=== PATIENT | male | born 1965 | race Two or more races ===

== ENCOUNTER 2016-08-27 19:22 | Emergency (ER) | payer OTHER ==
[~2016-08-27] VITALS: Ht 193 cm; Wt 104.3 kg
[~2016-08-27 19:22] MED LIST: ANUSOL-HC CREAM30 GM RECTAL; BACITRACIN15 GM TOPIC; CHERATUSSIN AC118 ML PO; CIPROFLOXACIN500 M2 ORAL; CLINDAMYCIN HC150 MG ORAL; DICYCLOMINE HCL20 M1 PO; FAMOTIDINE20 MG ORAL; HYDROCODON-ACE1 EAC1 PO; KEFLEX250 MG ORAL; KEFLEX500 MG ORAL; NKM; PREDNISONE20 MG ORAL
[2016-08-27] MEDS ORDERED: Mylanta II UD 30ml ORAL ONE (20:00)
[2016-08-27] MEDS ORDERED: Lidocaine 2% Visc 15ml soln ORAL ONE (20:00)
[2016-08-27] MEDS ORDERED: Dicyclomine HCl 10mg/5ml oral soln ORAL ONE (20:00)
[2016-08-27] MEDS ORDERED: PEPCID40 MG PO (20:46)
[2016-08-27 21:16] LABS: APPEARANCE,URINE CLEAR; KETONES,URINE NEGATIVE (NEGATIVE); LEUKOCYTE ESTERASE ,URINE NEGATIVE (NEGATIVE); NITRITE,URINE NEGATIVE (NEGATIVE); PH,URINE 6 (4.5-8.0); PROTEIN,URINE NEGATIVE (NEGATIVE); UROBILINOGEN,URINE NORMAL MG/DL (0.0-1.0)
[2016-08-27 21:30] VITALS: BP 120/81
[2016-08-27 21:31] LABS: BACTERIA,URINE FEW /HPF; RBC,URINE 0-2 /HPF (0 - 0); WBC,URINE 0-2 /HPF (0 - 0)
[2016-08-27 21:33] VITALS: BP 120/81
--- NOTE | 2016-08-28 13:00 | Emergency Room Report ---
History of Present Illness General Chief Complaint: Abdominal Pain Present Illness HPI The patient is a 51-year-old male presenting for one day of abdominal pain after eating spicy tajik food. The patient describes the pain as a 3/10 dull ache in the right lower quadrant and also upper midabdomen. The patient does admit to burning sensation of the mid chest after eating. The patient denies history of GERD and has not taken any medications for this. The patient states that the pain has decreased since this morning. The patient denies any other symptoms including nausea, vomiting, fever, chills, diarrhea, constipation Allergies: Coded Allergies: FISH CONTAINING PRODUCTS (Unverified Allergy, Severe, Anaphylaxis, 11/01/14 ) Patient History Past Medical History: see triage record Pertinent Family History: none Reviewed Nursing Documentation: PMH: Agreed, PSxH: Agreed Nursing Documentation-PMH Hx Cardiac Problems: No Hx Hypertension: Yes Hx Pacemaker: No Hx Asthma: No Hx COPD: No Hx Diabetes: No Hx Cancer: Yes - Brain Hx Gastrointestinal Problems: Yes - Hemorrhoid Hx Dialysis: No Hx Neurological Problems: No Hx Cerebrovascular Accident: No Hx Seizures: No Review of Systems All Other Systems: negative except mentioned in HPI Physical Exam Vital Signs Date Time Temp Pulse Resp B/P Pulse Ox O2 Delivery O2 Flow Rate FiO2 08/27/16 19:43 98.4 69 20 120/81 99 Room Air Sp02 EP Interpretation: reviewed, normal General Appearance: no apparent distress, alert, GCS 15, non-toxic Head: normocephalic, atraumatic Eyes: bilateral eye PERRL, bilateral eye normal inspection ENT: hearing grossly normal, normal pharynx, no angioedema, normal voice Neck: full range of motion, supple/symm/no masses Respiratory: chest non-tender, lungs clear, normal breath sounds, no wheezing, speaking full sentences Cardiovascular #1: regular rate, rhythm, no edema Gastrointestinal: normal bowel sounds, soft, no mass, tenderness - epigastric Musculoskeletal: back normal, gait/station normal, normal range of motion, non- tender Neurologic: alert, oriented x3, responsive, motor strength/tone normal, sensory intact, speech normal Psychiatric: judgement/insight normal, memory normal, mood/affect normal, no suicidal/homicidal ideation Skin: normal color, no rash, warm/dry, well hydrated Lymphatic: no adenopathy Medical Decision Making PA Attestation Dr. Osborne is my supervising physician. Patient management was discussed with my supervising physician Diagnostic Impression: Primary Impression: GERD (gastroesophageal reflux disease) ER Course The patient is a 51-year-old male presenting for one day of abdominal pain after eating spicy tajik food Differential diagnoses considered include but not limited to gastroenteritis, GERD, pancreatitis, appendicitis, UTI PE: Vitals WNL. NAD. Abdomen: Normal appearance. Non distended. No ecchymosis. Normal BS. No guarding. There is tenderness to palpation over epigastric region. No McBurney point tenderness No CVA tenderness The patient is given a GI cocktail and is feeling better. The patient will be discharged home with a prescription for Pepcid. ER precautions are given and patient will follow up with PMD Laboratory Tests Test 08/27/16 21:00 Urine Color Pale yellow Urine Appearance Clear Urine pH 6 (4.5-8.0) Urine Specific [place] 1.020 (1.005-1.035) Urine Protein Negative (NEGATIVE) Urine Glucose (UA) Negative (NEGATIVE) Urine Ketones Negative (NEGATIVE) Urine Occult Blood 1+ (NEGATIVE) H Urine Nitrite Negative (NEGATIVE) Urine Bilirubin Negative (NEGATIVE) Urine Urobilinogen Normal MG/DL (0.0-1.0) Urine Leukocyte Esterase Negative (NEGATIVE) Urine RBC 0-2 /HPF (0 - 0) H Urine WBC 0-2 /HPF (0 - 0) Urine Squamous Epithelial Cells None /LPF (NONE/OCC) Urine Bacteria Few /HPF (NONE) Lab Results Impression UA: no signs of infection Last Vital Signs Date Time Temp Pulse Resp B/P Pulse Ox O2 Delivery O2 Flow Rate FiO2 08/27/16 21:33 78 16 120/81 99 Room Air 08/27/16 21:30 98.0 Status: improved Disposition: HOME, SELF-CARE Condition: Improved Scripts Famotidine (PEPCID) 40 Mg Tablet 40 MG PO DAILY, #7 TAB 0 Refills Prov: RL QUINONES 08/27/16 Referrals: [facility],REFERRING (PCP) Patient Instructions: Gastroesophageal Reflux Disease, Adult Additional Instructions: I discussed my findings with the patient. All questions and concerns have been answered. Treatment and medication compliance have been addressed. I advised the patient that they need to follow up with PMD in 3-5 days. Return to ED if symptoms worsen, new symptoms arise, or if needed for any reason. Patient verbalized understanding of discharge instructions. RL QUINONES Aug 28, 2016 13:00
== END 2016-08-27 21:35 | disposition home or self-care (01) ==
LOC: EMR 20:15
DX: K21.9 Gastro-esophageal reflux disease without esophagitis (principal); Z91.013 Allergy to seafood; I10 Essential (primary) hypertension; Z85.841 Personal history of malignant neoplasm of brain
CPT/HCPCS: 81003; 99283

== ENCOUNTER 2016-09-06 14:13 | Emergency (ER) | payer OTHER ==
[~2016-09-06] VITALS: Ht 193 cm; Wt 103.4 kg
[~2016-09-06 14:13] MED LIST changes: +PEPCID40 MG PO
[2016-09-06 14:26] VITALS: BP 143/92
[2016-09-06 16:10] LABS: APPEARANCE,URINE CLEAR; KETONES,URINE NEGATIVE (NEGATIVE); LEUKOCYTE ESTERASE ,URINE NEGATIVE (NEGATIVE); NITRITE,URINE NEGATIVE (NEGATIVE); PH,URINE 7 (4.5-8.0); PROTEIN,URINE NEGATIVE (NEGATIVE); UROBILINOGEN,URINE NORMAL MG/DL (0.0-1.0)
[2016-09-06] MEDS ORDERED: ZYPREXA2.5 MG ORAL (16:16)
[2016-09-06 16:20] VITALS: BP 143/92
--- NOTE | 2016-09-08 09:11 | Emergency Room Report ---
History of Present Illness General Chief Complaint: Male Urogenital Problems Source: Patient Present Illness HPI Patient present with complaints of burning sensation with urination He states that he has had this before in the past and had not been able to figure out what is going on Denies any vomiting or diarrhea denies any fevers or chills patient reports that he has not had any sexual relations over the past one year Denies any testicular pain Her that he has some mild suprapubic discomfort before this Patient also reports that he is out of his Zyprexa which was given previously Which she felt was helping him Allergies: Coded Allergies: FISH CONTAINING PRODUCTS (Unverified Allergy, Severe, Anaphylaxis, 11/01/14 ) Patient History Past Medical History: see triage record Pertinent Family History: none Reviewed Nursing Documentation: PMH: Agreed, PSxH: Agreed Nursing Documentation-PMH Past Medical History: No History, Except For Hx Cardiac Problems: No Hx Hypertension: Yes Hx Pacemaker: No Hx Asthma: No Hx COPD: No Hx Diabetes: No Hx Cancer: Yes - Brain Hx Gastrointestinal Problems: Yes - GERD, Hemorrhoid Hx Dialysis: No Hx Neurological Problems: No Hx Cerebrovascular Accident: No Hx Seizures: No Review of Systems All Other Systems: negative except mentioned in HPI Physical Exam Vital Signs Date Time Temp Pulse Resp B/P Pulse Ox O2 Delivery O2 Flow Rate FiO2 09/06/16 14:26 98.2 75 16 143/92 99 Room Air Sp02 EP Interpretation: reviewed, normal General Appearance: well appearing, no apparent distress Head: normocephalic, atraumatic Eyes: bilateral eye EOMI, bilateral eye PERRL ENT: hearing grossly normal, normal pharynx, TMs + canals normal, uvula midline Neck: full range of motion, supple, no meningismus, no bony tend Respiratory: lungs clear, normal breath sounds, no rhonchi, no respiratory distress, no retraction, no accessory muscle use Cardiovascular #1: normal peripheral pulses, regular rate, rhythm, no edema, no gallop, no JVD, no murmur Gastrointestinal: normal bowel sounds, non tender, soft, no mass, no organomegaly, non-distended, no guarding, no hernia, no pulsatile mass, no rebound Genitourinary: no CVA tenderness Musculoskeletal: normal inspection Neurologic: oriented x3, responsive, monitor technician III-XII nml as tested, motor strength/ tone normal, sensory intact Psychiatric: mood/affect normal Skin: normal color, no rash, warm/dry, palpation normal Lymphatic: normal inspection, no adenopathy Medical Decision Making Diagnostic Impression: Primary Impression: dysuria ER Course Patient's urine sample was clear no signs of any obvious infectious pathology Patient was discussed regarding close outpatient followup at this time the patient's abdomen is soft and there is no requirement for further imaging study UA; negative Last Vital Signs Date Time Temp Pulse Resp B/P Pulse Ox O2 Delivery O2 Flow Rate FiO2 09/06/16 16:20 98.2 75 16 143/92 99 Room Air Status: unchanged Disposition: HOME, SELF-CARE Condition: Stable Scripts Olanzapine* (ZYPREXA*) 2.5 Mg Tablet 2.5 MG ORAL DAILY, #15 TAB 0 Refills Prov: FABRICIO BACH D.O. 09/06/16 Referrals: [facility],REFERRING (PCP) Patient Instructions: Dysuria Additional Instructions: Patient is provided with the discharge instructions notified to follow up with primary doctor in the next 2-3 days otherwise return to the er with any worsening symptoms. Please note that this report is being documented using [employer] technology. This can lead to erroneous entry secondary to incorrect interpretation by the dictating instrument. FABRICIO BACH D.O. Sep 08, 2016 09:11
== END 2016-09-06 16:20 | disposition home or self-care (01) ==
LOC: EMR 15:13
DX: R30.0 Dysuria (principal); Z91.013 Allergy to seafood; I10 Essential (primary) hypertension; Z85.841 Personal history of malignant neoplasm of brain; K21.9 Gastro-esophageal reflux disease without esophagitis
CPT/HCPCS: 81003; 99283

== ENCOUNTER 2016-09-22 13:01 | Emergency (ER) | payer OTHER ==
[~2016-09-22] VITALS: Ht 193 cm; Wt 98.0 kg
[~2016-09-22 13:01] MED LIST changes: +ZYPREXA2.5 MG ORAL
[2016-09-22 13:14] VITALS: BP 132/84
--- NOTE | 2016-09-22 13:23 | Emergency Room Report ---
History of Present Illness General Chief Complaint: Medication Refill Present Illness HPI 51-year-old male presents the emergency department requesting medication refill for his Zyprexa patient states he has a history of anxiety. Patient also states that he is a surviving brain cancer survivor, and he needs to have an MRI performed soon however due to his anxiety he is unable to have this done. Patient states he has been out of his medication and he is unable to follow up with his PCP for medication refill. Patient denies difficulty breathing, shortness of breath, fevers or chills. Patient denies depression, SI or HI. Denies CP, Palpitations, LOC, AMS, dizziness, Changes in Vision, Sensation, paresthesias, or a sudden severe headache. Allergies: Coded Allergies: FISH CONTAINING PRODUCTS (Unverified Allergy, Severe, Anaphylaxis, 11/01/14 ) Patient History Past Medical History: see triage record Past Surgical History: none Pertinent Family History: none Immunizations: UTD Reviewed Nursing Documentation: PMH: Agreed, PSxH: Agreed Nursing Documentation-PMH Hx Cardiac Problems: No Hx Hypertension: Yes Hx Pacemaker: No Hx Asthma: No Hx COPD: No Hx Diabetes: No Hx Cancer: Yes - Brain Hx Gastrointestinal Problems: Yes - GERD, Hemorrhoid Hx Dialysis: No Hx Neurological Problems: No Hx Cerebrovascular Accident: No Hx Seizures: No Review of Systems All Other Systems: negative except mentioned in HPI Physical Exam Vital Signs Date Time Temp Pulse Resp B/P Pulse Ox O2 Delivery O2 Flow Rate FiO2 09/22/16 13:08 98.1 70 16 132/84 99 Room Air Sp02 EP Interpretation: reviewed, normal General Appearance: no apparent distress, alert, GCS 15, non-toxic Head: normocephalic, atraumatic Eyes: bilateral eye PERRL, bilateral eye normal inspection ENT: hearing grossly normal, normal pharynx, no angioedema, normal voice Neck: full range of motion, supple/symm/no masses Respiratory: lungs clear, normal breath sounds, speaking full sentences Cardiovascular #1: regular rate, rhythm Musculoskeletal: back normal, gait/station normal, normal range of motion, non- tender Neurologic: alert, oriented x3, responsive, motor strength/tone normal, sensory intact, speech normal Psychiatric: judgement/insight normal, memory normal, mood/affect normal, no suicidal/homicidal ideation Skin: normal color, no rash, warm/dry, well hydrated Lymphatic: no adenopathy Medical Decision Making PA Attestation Dr. Levine is my supervising Physician whom patient management has been discussed with. Diagnostic Impression: Primary Impression: Encounter for medication refill ER Course 51-year-old male presents the emergency department requesting medication refill for his Zyprexa patient states he has a history of anxiety. Patient also states that he is a surviving brain cancer survivor, and he needs to have an MRI performed soon however due to his anxiety he is unable to have this done. Patient states he has been out of his medication and he is unable to follow up with his PCP for medication refill. Patient denies difficulty breathing, shortness of breath, fevers or chills. Patient denies depression, SI or HI. Ddx considered but are not limited to: drug seeking, OD, SI/HI, anxiety Vital signs: are WNL, pt. is afebrile H&PE are most consistent with need for medication refill. ORDERS: none required at this time, the diagnosis is clinical ED INTERVENTIONS: None required at this time. DISCHARGE: At this time pt. is stable for d/c to home. Will provide printed patient care instructions, and any necessary prescriptions. Care plan and follow up instructions have been discussed with the patient prior to discharge. Last Vital Signs Date Time Temp Pulse Resp B/P Pulse Ox O2 Delivery O2 Flow Rate FiO2 09/22/16 13:14 16 132/84 99 Room Air 09/22/16 13:08 98.1 70 Disposition: HOME, SELF-CARE Condition: Stable Scripts Olanzapine* (ZYPREXA*) 2.5 Mg Tablet 2.5 MG ORAL DAILY, #30 TAB 0 Refills Prov: Leonie Robles 09/22/16 Patient Instructions: Medicine Refill at the Emergency Department Additional Instructions: Take medications as directed. Follow up with PCP in 3-5 days Return sooner to ED if new symptoms occur, or current symptoms become worse. Review provided information for [facility] for follow up and medication refill management * - Please note that this Emergency Department Report was dictated using [employer] top publisher technology software, occasionally this can lead to erroneous entry secondary to interpretation by the dictation equipment. Leonie Robles Sep 22, 2016 13:23
[2016-09-22 13:24] VITALS: BP 132/84
[2016-09-22] MEDS ORDERED: ZYPREXA2.5 MG ORAL (13:24)
== END 2016-09-22 13:25 | disposition home or self-care (01) ==
LOC: EMR 13:22
DX: Z76.0 Encounter for issue of repeat prescription (principal); F41.9 Anxiety disorder, unspecified; I10 Essential (primary) hypertension; K21.9 Gastro-esophageal reflux disease without esophagitis; Z85.841 Personal history of malignant neoplasm of brain
CPT/HCPCS: 99283

== ENCOUNTER 2017-03-31 12:30 | Emergency (ER) | payer OTHER ==
[~2017-03-31] VITALS: Ht 193 cm; Wt 99.8 kg
[2017-03-31 12:35] VITALS: BP 121/78
[2017-03-31] MEDS ORDERED: KENALOG 0.025%15 GM APPLIC (13:10)
[2017-03-31] MEDS ORDERED: CORTISPORIN EAR10 ML LEFT EAR (13:10)
[2017-03-31 13:27] VITALS: BP 121/78
--- NOTE | 2017-03-31 14:17 | Emergency Room Report ---
History of Present Illness General Chief Complaint: Earache Source: Patient Present Illness HPI The patient is a 51-year-old male presenting for left ear pain for the past 2 days. Pain is a 6/10 dull ache and does not radiate. Worse with touch. He denies any changes in hearing. He denies any fever or chills. He does admit to frequently cleaning the ears out with Q-tips. Is also complaining of rash to both hands described as very itchy. He states he has a history of eczema. He denies any pain. He has not tried any medications yet for this. He denies any other symptoms Allergies: Coded Allergies: FISH CONTAINING PRODUCTS (Unverified Allergy, Severe, Anaphylaxis, 11/01/14 ) Patient History Past Medical History: see triage record Pertinent Family History: none Reviewed Nursing Documentation: PMH: Agreed, PSxH: Agreed Nursing Documentation-PMH Hx Cardiac Problems: No Hx Hypertension: Yes Hx Pacemaker: No Hx Asthma: No Hx COPD: No Hx Diabetes: No Hx Cancer: Yes - Brain Hx Gastrointestinal Problems: Yes - GERD, Hemorrhoid Hx Dialysis: No Hx Neurological Problems: No Hx Cerebrovascular Accident: No Hx Seizures: No Review of Systems All Other Systems: negative except mentioned in HPI Physical Exam Vital Signs Date Time Temp Pulse Resp B/P (MAP) Pulse Ox O2 Delivery O2 Flow Rate FiO2 03/31/17 12:33 97.9 75 20 121/78 99 Room Air Sp02 EP Interpretation: reviewed, normal General Appearance: no apparent distress, alert, GCS 15, non-toxic Head: normocephalic, atraumatic Eyes: bilateral eye normal inspection, bilateral eye PERRL ENT: hearing grossly normal, normal voice, uvula midline, other - L EAC erythema and TTP to tragus Neck: full range of motion, supple/symm/no masses Respiratory: chest non-tender, lungs clear, normal breath sounds, speaking full sentences Cardiovascular #1: regular rate, rhythm, no edema Musculoskeletal: back normal, gait/station normal, normal range of motion, non- tender Neurologic: alert, oriented x3, responsive, motor strength/tone normal, sensory intact, speech normal Psychiatric: judgement/insight normal, memory normal, mood/affect normal, no suicidal/homicidal ideation Skin: rash - Bilat hands erythema with papules on palmar surfaces and between fingers Lymphatic: no adenopathy Medical Decision Making PA Attestation Dr. Fuentes is my supervising physician. Patient management was discussed with my supervising physician Diagnostic Impression: Primary Impression: Eczema, dyshidrotic Additional Impression: Otitis externa, acute Qualified Codes: H60.502 - Unspecified acute noninfective otitis externa, left ear ER Course The patient is a 50-year-old male presenting for left ear pain and had rash Differential diagnosis include but not limited to otitis externa, otitis media, mastoiditis, sinusitis, pharyngitis Ddx considered include but not limited to insect bite, contact dermatitis, eczema, cellulitis, herpes Physical exam: Vitals within normal limits. No apparent distress. HEENT: Left ear external auditory canal is erythematous and edematous. TTP over tragus. Tympanic membrane is intact. No bulging. There is no cervical lymphadenopathy. There is erythema with papules of bilateral hand palmar surfaces in between fingers Otherwise exam is unremarkable The patient will be discharged home with a prescription for Cortisporin and triamcinolone. ER precautions given Last Vital Signs Date Time Temp Pulse Resp B/P (MAP) Pulse Ox O2 Delivery O2 Flow Rate FiO2 03/31/17 13:27 97.9 75 20 121/78 99 Room Air Status: improved Disposition: HOME, SELF-CARE Condition: Improved Scripts Neomycin/Polymyxin B Sulf/Hc* (CORTISPORIN EAR SOLUTION*) 10 Ml Solution 4 DROP LEFT EAR QID, #10 ML 0 Refills Prov: RL QUINONES 03/31/17 Triamcinolone Acet (Triamcinolone Acetonide) 15 Gm Cream..g. 15 GM APPLIC TID, #15 GM Prov: RL QUINONES 03/31/17 Referrals: [facility],REFERRING (PCP) Patient Instructions: Hand Dermatitis, Otitis Externa Additional Instructions: I discussed my findings with the patient. All questions and concerns have been answered. Treatment and medication compliance have been addressed. I advised the patient that they need to follow up with PMD in 3-5 days. Return to ED if symptoms worsen, new symptoms arise, or if needed for any reason. Patient verbalized understanding of discharge instructions. RL QUINONES Mar 31, 2017 14:17
== END 2017-03-31 13:28 | disposition home or self-care (01) ==
LOC: EMR 13:00
DX: H60.502 Unspecified acute noninfective otitis externa, left ear (principal); L30.1 Dyshidrosis [pompholyx]; I10 Essential (primary) hypertension; Z85.841 Personal history of malignant neoplasm of brain; K21.9 Gastro-esophageal reflux disease without esophagitis
CPT/HCPCS: 99283

== ENCOUNTER 2017-07-16 18:14 | Emergency (ER) | payer OTHER ==
[~2017-07-16] VITALS: Ht 193 cm; Wt 104.3 kg
[~2017-07-16 18:14] MED LIST changes: +CORTISPORIN EAR10 ML LEFT EAR; +KENALOG 0.025%15 GM APPLIC
[2017-07-16 18:30] VITALS: BP 157/90
--- NOTE | 2017-07-16 18:56 | Emergency Room Report ---
History of Present Illness General Chief Complaint: Pain Source: Patient Present Illness HPI 51 YO male presents to the ED c/o 10/01 in severity rectal pain and itching episodic x several months. He reports scant BRBPR after defecation. Patient states that at age 48 he had a normal colonoscopy performed he denies night sweats or significant changes in weight he denies familial history of colon cancer. He denies constipation he does report that on occasion he will do some strenuous lifting. He states that he has struggled with hemorrhoids off and on for many years. He denies abdominal pain or tenderness. he denies history of enlarged prostate, penile discharge, dysuria, testicular pain or swelling. Denies nausea or vomiting. Patient also has a history of eczema to the bilateral hands and is requesting medication refill of triamcinolone cream. Allergies: Coded Allergies: FISH CONTAINING PRODUCTS (Unverified Allergy, Severe, Anaphylaxis, 11/01/14 ) Patient History Past Medical History: see triage record Past Surgical History: none Pertinent Family History: none Immunizations: UTD Reviewed Nursing Documentation: PMH: Agreed, PSxH: Agreed Nursing Documentation-PMH Hx Cardiac Problems: No Hx Hypertension: Yes Hx Pacemaker: No Hx Asthma: No Hx COPD: No Hx Diabetes: No Hx Cancer: Yes - Brain Hx Gastrointestinal Problems: Yes - GERD, Hemorrhoid Hx Dialysis: No Hx Neurological Problems: No Hx Cerebrovascular Accident: No Hx Seizures: No Review of Systems All Other Systems: negative except mentioned in HPI Physical Exam Vital Signs Date Time Temp Pulse Resp B/P (MAP) Pulse Ox O2 Delivery O2 Flow Rate FiO2 07/16/17 18:19 97.9 90 17 157/90 96 Room Air Sp02 EP Interpretation: reviewed, normal General Appearance: well appearing, no apparent distress, alert, GCS 15, non- toxic Head: normocephalic, atraumatic ENT: hearing grossly normal, normal voice Neck: full range of motion Respiratory: lungs clear, normal breath sounds, speaking full sentences Cardiovascular #1: regular rate, rhythm Gastrointestinal: non tender, soft Rectal: heme negative stool, hemorrhoids - hemorrhoid 6 o'clock Position non thrombosed. , secondary to straining/ constipation. bowl sounds are normo active, prostate non-tender Genitourinary: deferred Musculoskeletal: back normal, gait/station normal, normal range of motion, non- tender Neurologic: alert, oriented x3, responsive, motor strength/tone normal, sensory intact, speech normal, grossly normal Psychiatric: judgement/insight normal Skin: normal color, warm/dry, well hydrated, rash - small dry hyperpigmented plaques interdigitally bilaterally. Medical Decision Making PA Attestation Dr. avila is my supervising Physician whom patient management has been discussed with. Diagnostic Impression: Primary Impression: External hemorrhoid Additional Impression: Eczema, dyshidrotic ER Course 51 YO male presents to the ED c/o 10/01 in severity rectal pain and itching episodic x several months. He reports scant BRBPR after defecation. Patient states that at age 48 he had a normal colonoscopy performed he denies night sweats or significant changes in weight he denies familial history of colon cancer. He denies constipation he does report that on occasion he will do some strenuous lifting. He states that he has struggled with hemorrhoids off and on for many years. He denies abdominal pain or tenderness. he denies history of enlarged prostate, penile discharge, dysuria, testicular pain or swelling. Denies nausea or vomiting. Patient also has a history of eczema to the bilateral hands and is requesting medication refill of triamcinolone cream. Ddx considered but are not limited to constipation , anal fissure, perianal abscess, rectal wall tear, thrombosed hemorrhoid, hemorrhoid. Vital signs: are WNL, pt. is afebrile H&PE are most consistent with hemorrhoid 6 o'clock Position non thrombosed. , secondary to straining/ constipation. bowl sounds are normo active. ORDERS: - FOB Guiac Test: negative ED INTERVENTIONS: - Discussed the patient's self care interventions for hemorrhoids DISCHARGE: At this time pt. is stable for d/c to home. Will provide printed patient care instructions, and any necessary prescriptions. Care plan and follow up instructions have been discussed with the patient prior to discharge. Last Vital Signs Date Time Temp Pulse Resp B/P (MAP) Pulse Ox O2 Delivery O2 Flow Rate FiO2 07/16/17 18:30 97.9 79 17 157/90 96 Room Air Disposition: HOME, SELF-CARE Condition: Stable Scripts Triamcinolone Acet (Triamcinolone Acetonide) 15 Gm Cream..g. 1 APPLIC TP BID, #15 GM 3 Refills Prov: Leonie Robles 07/16/17 Hydrocortisone Acetate* (ANUSOL-HC*) 25 Mg Supp.rect 1 SUPP RECTAL TWICE A DAY, #20 SUPP Prov: Leonie Robles 07/16/17 Referrals: [facility],REFERRING (PCP) Patient Instructions: Eczema, Hemorrhoids Additional Instructions: Take medications as directed. Follow up with a Primary Care Provider in 3-5 days for GI Referral as needed , even if your symptoms have resolved. --Please review list of primary care clinics, if you do not already have a primary care provider Return sooner to ED if new symptoms occur, or current symptoms become worse. - Please note that this Emergency Department Report was dictated using [employer] technology software, occasionally this can lead to erroneous entry secondary to interpretation by the dictation equipment. Leonie Robles Jul 16, 2017 18:55
[2017-07-16] MEDS ORDERED: ANUSOL-HC25 MG RECTAL (19:00)
[2017-07-16] MEDS ORDERED: KENALOG 0.025%15 GM TP (19:00)
[2017-07-16 19:08] VITALS: BP 152/88
== END 2017-07-16 19:12 | disposition home or self-care (01) ==
LOC: EMR 18:38
DX: K64.4 Residual hemorrhoidal skin tags (principal); L30.1 Dyshidrosis [pompholyx]; K21.9 Gastro-esophageal reflux disease without esophagitis; I10 Essential (primary) hypertension; Z85.841 Personal history of malignant neoplasm of brain; Z91.013 Allergy to seafood
CPT/HCPCS: 99283

== ENCOUNTER 2017-11-08 10:09 | Emergency (ER) | payer OTHER ==
[~2017-11-08] VITALS: Ht 193 cm; Wt 104.3 kg
[~2017-11-08 10:09] MED LIST changes: +ANUSOL-HC25 MG RECTAL; +KENALOG 0.025%15 GM TP
[2017-11-08 10:57] VITALS: BP 138/79
[2017-11-08 11:13] LABS: BILIRUBIN, URINE NEGATIVE (NEGATIVE); COLOR,URINE PALE YELLOW; GLUCOSE, URINE (UA) NEGATIVE (NEGATIVE); KETONES,URINE NEGATIVE (NEGATIVE); LEUKOCYTE ESTERASE ,URINE NEGATIVE (NEGATIVE); NITRITE,URINE NEGATIVE (NEGATIVE); PH,URINE 6 (4.5-8.0); PROTEIN,URINE NEGATIVE (NEGATIVE); UROBILINOGEN,URINE NORMAL MG/DL (0.0-1.0)
[2017-11-08 11:20] LABS: APPEARANCE,URINE SLIGHTLY CLOUDY
--- NOTE | 2017-11-08 12:14 | Emergency Room Report ---
History of Present Illness General Chief Complaint: Abdominal Pain Source: Patient Present Illness HPI The patient states that he has lower abdominal pain. He states the pain is worse with movement. He admits that he has been moving and carrying heavy boxes. He has not been able to rest. He also is concerned because he has had a little bit of dysuria over the past day. He has in the past had a urinary tract infection. He denies sexual activity and the possibility that he could have a sexually transmitted disease. He denies testicular pain. He denies nausea or vomiting. He denies fever or chills. He denies back pain. He has no other complaints. Allergies: Coded Allergies: FISH CONTAINING PRODUCTS (Unverified Allergy, Severe, Anaphylaxis, 11/01/14 ) Patient History Past Medical History: see triage record, GERD, other - Hemorrhoids, brain cancer Social History: Denies: smoking, alcohol use, drug use Reviewed Nursing Documentation: PMH: Agreed; PSxH: Agreed Nursing Documentation-PMH Hx Cardiac Problems: No Hx Pacemaker: No Hx Asthma: No Hx COPD: No Hx Diabetes: No Hx Cancer: Yes - Brain Hx Gastrointestinal Problems: Yes - GERD, Hemorrhoid Hx Dialysis: No Hx Neurological Problems: No Hx Cerebrovascular Accident: No Hx Seizures: No Review of Systems All Other Systems: negative except mentioned in HPI Physical Exam Vital Signs Date Time Temp Pulse Resp B/P (MAP) Pulse Ox O2 Delivery O2 Flow Rate FiO2 11/08/17 10:17 98.0 86 20 138/79 97 Room Air 98.1 Sp02 EP Interpretation: reviewed, normal General Appearance: no apparent distress, alert, GCS 15, non-toxic Head: normocephalic, atraumatic Eyes: bilateral eye normal inspection, bilateral eye PERRL ENT: hearing grossly normal, normal pharynx, no angioedema, normal voice Neck: full range of motion, supple/symm/no masses Respiratory: chest non-tender, lungs clear, normal breath sounds, no respiratory distress, no retraction, no accessory muscle use, speaking full sentences Cardiovascular #1: regular rate, rhythm, no edema Gastrointestinal: normal bowel sounds, soft, non-distended, no guarding, no rebound, tenderness - mild ttp over the lower abdominal muscles. Rectal: deferred Musculoskeletal: back normal, gait/station normal, normal range of motion, non- tender Neurologic: alert, oriented x3, responsive, motor strength/tone normal, sensory intact, speech normal Psychiatric: judgement/insight normal, memory normal, mood/affect normal, no suicidal/homicidal ideation Skin: normal color, no rash, warm/dry, well hydrated Medical Decision Making Diagnostic Impression: Primary Impression: Abdominal muscle strain Additional Impressions: Dysuria Hemorrhoids ER Course This patient has a clinical presentation consistent with abdominal muscle strain. There are no red flags on physical exam or history that would make me concerned for serious intra-abdominal process. Therefore, I do not feel that I need to obtain imaging studies. The patient has pain with range of motion and has tenderness to palpation along the muscle. There is no evidence of compartment syndrome. The patient had some dysuria, however, urinalysis is unremarkable. The patient requested a refill on his triamcinolone for his eczema. He also requested a refill on the larger cortisone for his hemorrhoids. The patient was instructed on supportive home measures. Patient was also instructed on the importance of follow-up with her primary care physician. No emergency medical condition was identified. The patient was given return precautions and followup instructions. Laboratory Tests Test 11/08/17 10:20 Urine Color Pale yellow Urine Appearance Slightly cloudy Urine pH 6 (4.5-8.0) Urine Specific [place] 1.010 (1.005-1.035) Urine Protein Negative (NEGATIVE) Urine Glucose (UA) Negative (NEGATIVE) Urine Ketones Negative (NEGATIVE) Urine Occult Blood 1+ (NEGATIVE) H Urine Nitrite Negative (NEGATIVE) Urine Bilirubin Negative (NEGATIVE) Urine Urobilinogen Normal MG/DL (0.0-1.0) Urine Leukocyte Esterase Negative (NEGATIVE) Urine RBC 0-2 /HPF (0 - 0) H Urine WBC 0-2 /HPF (0 - 0) Urine Squamous Epithelial Cells Occasional /LPF Urine Bacteria Few /HPF (NONE) Last Vital Signs Date Time Temp Pulse Resp B/P (MAP) Pulse Ox O2 Delivery O2 Flow Rate FiO2 11/08/17 10:57 98.1 79 18 138/79 99 Room Air 98.1 Status: improved Disposition: HOME, SELF-CARE Condition: Improved Referrals: NON PHYSICIAN (PCP) NARESH LAYNE D.O. November 08, 2017 12:14
[2017-11-08] MEDS ORDERED: ANUSOL-HC30 GM RC (12:19)
[2017-11-08] MEDS ORDERED: KENALOG 0.025%15 GM APPLIC (12:19)
[2017-11-08] MEDS ORDERED: LIDODERM700 M1 TOPIC (12:19)
[2017-11-08 12:28] VITALS: BP 133/78
== END 2017-11-08 12:34 | disposition home or self-care (01) ==
LOC: EMR 10:34
DX: S39.011A Strain of muscle, fascia and tendon of abdomen, initial encounter (principal); X50.0XXA Overexertion from strenuous movement or load, initial encounter; Y92.89 Other specified places as the place of occurrence of the external cause; R30.0 Dysuria; K64.9 Unspecified hemorrhoids; K21.9 Gastro-esophageal reflux disease without esophagitis; Z85.841 Personal history of malignant neoplasm of brain
CPT/HCPCS: 81003; 99282

== ENCOUNTER 2019-01-17 18:44 | Emergency (ER) | payer OTHER ==
[~2019-01-17] VITALS: Ht 193 cm; Wt 102.1 kg
[~2019-01-17 18:44] MED LIST changes: +ANUSOL-HC30 GM RC; +LIDODERM700 M1 TOPIC
--- NOTE | 2019-01-17 18:53 | NUR ---
ED Nurse Note: PT walked in c/o abdominal pain and discomfort. VSS. alert x4, ambulatory
[2019-01-17 18:55] VITALS: BP 144/80
[2019-01-17 19:39] LABS: BASOPHILS % (AUTO) 1.2 % (0.0-2.0); EOSINOPHILS % (AUTO) 1.5 % (0.0-3.0); HEMATOCRIT 43.8 % (42.0-52.0); HEMOGLOBIN 14.8 G/DL (14.2-18.0); LYMPHOCYTES % (AUTO) 29.8 % (20.0-45.0); MEAN CORPUSCULAR VOLUME 94 FL (80-99); MONOCYTES % (AUTO) 9.5 % (1.0-10.0); NEUTROPHILS % (AUTO) 57.9 % (45.0-75.0); PLATELET COUNT 192 K/UL (150-450); RED BLOOD COUNT 4.64 M/UL (4.70-6.10); RED CELL DISTRIBUTION WIDTH 11.3 % (11.6-14.8)
[2019-01-17 19:51] LABS: ANION GAP 9 mmol/L (5-15); BLOOD UREA NITROGEN 17 mg/dL (7-18); CALCIUM 9.5 MG/DL (8.5-10.1); CARBON DIOXIDE 27 MMOL/L (21-32); CHLORIDE 103 MMOL/L (98-107); CREATININE 1.2 MG/DL (0.55-1.30); POTASSIUM 3.9 MMOL/L (3.5-5.1); SODIUM 139 MMOL/L (136-145)
[2019-01-17 19:56] LABS: ALANINE AMINOTRANSFERASE 36 U/L (12-78); ALBUMIN 4.5 G/DL (3.4-5.0); ALBUMIN/GLOBULIN RATIO 1.5 (1.0-2.7); ALKALINE PHOSPHATASE 83 U/L (46-116); ASPARTATE AMINO TRANSFERASE 38 U/L (15-37); BILIRUBIN,TOTAL 0.4 MG/DL (0.2-1.0)
--- NOTE | 2019-01-17 20:03 | Diagnostic Imaging Report ---
EXAM: XR Chest, 1 View CLINICAL HISTORY: PAIN TECHNIQUE: Frontal view of the chest. COMPARISON: No relevant prior studies available. FINDINGS: Lungs: Unremarkable. No consolidation. Pleural space: Unremarkable. No pneumothorax. Heart: Unremarkable. No cardiomegaly. Mediastinum: Unremarkable. Bones/joints: Unremarkable. IMPRESSION: Normal chest x-ray.
[2019-01-17 20:33] LABS: APPEARANCE,URINE CLEAR; BILIRUBIN, URINE NEGATIVE (NEGATIVE); COLOR,URINE PALE YELLOW; GLUCOSE, URINE (UA) NEGATIVE (NEGATIVE); KETONES,URINE NEGATIVE (NEGATIVE); LEUKOCYTE ESTERASE ,URINE NEGATIVE (NEGATIVE); NITRITE,URINE NEGATIVE (NEGATIVE); PH,URINE 5 (4.5-8.0); PROTEIN,URINE NEGATIVE (NEGATIVE); UROBILINOGEN,URINE NORMAL MG/DL (0.0-1.0)
--- NOTE | 2019-01-17 20:35 | Emergency Room Report ---
History of Present Illness General Chief Complaint: General Complaint Source: Medical Record Present Illness HPI 53-year-old male with no significant past medical history here complaining of 1 day of epigastric pain radiating to his chest that started after eating chili peppers as well as penis. Patient denies nausea vomiting, diarrhea, shortness of breath, palpitation. Denies dizziness, headache, alcohol intake, smoking. Patient reports that he lifted heavy objects yesterday and started feeling pain in his lumbar region however denies any fall or injury. Denies radiation, tingling or numbness. Denies recent travel, or started new medication. Patient sitting comfortably, complaining of some acid reflux. Denies urinary frequency, saddle paresthesia, urinary or bowel incontinence Allergies: Coded Allergies: FISH CONTAINING PRODUCTS (Unverified Allergy, Severe, Anaphylaxis, 11/01/14 ) Patient History Past Medical History: see triage record Past Surgical History: unable to obtain Pertinent Family History: none Immunizations: UTD Reviewed Nursing Documentation: PMH: Agreed; PSxH: Agreed Nursing Documentation-PMH Past Medical History: No History, Except For Hx Cardiac Problems: No Hx Hypertension: Yes Hx Pacemaker: No Hx Asthma: No Hx COPD: No Hx Diabetes: No Hx Cancer: Yes - Brain Hx Gastrointestinal Problems: Yes - GERD, Hemorrhoid Hx Dialysis: No Hx Neurological Problems: No Hx Cerebrovascular Accident: No Hx Seizures: No Review of Systems All Other Systems: negative except mentioned in HPI Physical Exam Vital Signs Date Time Temp Pulse Resp B/P (MAP) Pulse Ox O2 Delivery O2 Flow Rate FiO2 01/17/19 18:48 98.4 83 18 148/84 (105) 96 Room Air 01/17/19 18:55 97 Sp02 EP Interpretation: reviewed, normal General Appearance: normal inspection, well appearing, no apparent distress, GCS 15 Head: normocephalic, atraumatic Eyes: bilateral eye normal inspection, bilateral eye PERRL ENT: normal ENT inspection, hearing grossly normal, normal pharynx, no angioedema Neck: normal inspection, full range of motion, supple Respiratory: normal inspection, chest non-tender, lungs clear, no rhonchi, no accessory muscle use, no wheezing Cardiovascular #1: normal inspection, normal peripheral pulses, regular rate, rhythm, no gallop, no murmur Gastrointestinal: normal inspection, non tender, soft, no organomegaly, no peritonitis, no guarding, other - Negative McBurney's and Rovsing's Rectal: deferred Genitourinary: no CVA tenderness Musculoskeletal: normal inspection, back normal, digits/nails normal, gait/ station normal, normal range of motion, non-tender Neurologic: normal inspection, alert, oriented x3 Psychiatric: normal inspection, judgement/insight normal Skin: no rash Lymphatic: normal inspection, no adenopathy Medical Decision Making PA Attestation All my diagnosis and treatment plans were reviewed ad discussed with my supervising physician Dr. Gastelum Diagnostic Impression: Primary Impression: GERD (gastroesophageal reflux disease) Additional Impression: Lumbar strain ER Course 53-year-old male with no significant past medical history here complaining of 1 day of epigastric pain radiating to his chest that started after eating chili peppers as well as penis. Patient denies nausea vomiting, diarrhea, shortness of breath, palpitation. Denies dizziness, headache, alcohol intake, smoking. Patient reports that he lifted heavy objects yesterday and started feeling pain in his lumbar region however denies any fall or injury. Denies radiation, tingling or numbness. Denies recent travel, or started new medication. Patient sitting comfortably, complaining of some acid reflux. Denies urinary frequency, saddle paresthesia, urinary or bowel incontinence Ddx considered but are not limited to: Gastritis, gastroenteritis, GERD, SD, lumbar strain versus sprain versus fracture Vital signs: are WNL, pt. is afebrile H&PE are most consistent with: Ddx considered but are not limited to: Lumbar spine strain, lumbar spine fracture, lumbar spine sprain Vital signs: are WNL, pt. is afebrile H&PE are most consistent with: lumbar strain, GERD ORDERS: CBC, CMP, UA, EKG, CXR, Omeprazole, tylenol, voltaren gel ED INTERVENTIONS: None required at this time. DISCHARGE: At this time pt. is stable for d/c to home. Will provide printed patient care instructions, and any necessary prescriptions. Care plan and follow up instructions have been discussed with the patient prior to discharge. Avoid eating spicy acidic food medication as directed alternate and icing the affected area if worsening symptoms return to the emergency room follow-up with your primary care provider EKG Diagnostic Results Rate: normal Rhythm: NSR ST Segments: no acute changes Chest X-Ray Diagnostic Results Chest X-Ray Diagnostic Results : Chest X-Ray Ordered: Yes # of Views/Limited/Complete: 1 View Indication: Chest Pain EP Interpretation: Yes YSABEL Xray: Interpretation reviewed, by supervising MD, and agrees with findings. Interpretation: no consolidation, no effusion, no pneumothorax Impression: No acute disease Electronically Signed by: Robinson Quinonez PA-C Last Vital Signs Date Time Temp Pulse Resp B/P (MAP) Pulse Ox O2 Delivery O2 Flow Rate FiO2 01/17/19 18:55 84 18 Room Air 97 01/17/19 18:55 98.4 144/80 97 Disposition: HOME, SELF-CARE Condition: Stable Scripts Diclofenac Sodium (VOLTAREN) 100 Gm Gel..gram. 2 GM TP TID, #100 GM Prov: Robinson Navarro 01/17/19 Acetaminophen* (ACETAMINOPHEN EXTRA STRENGTH*) 500 Mg Tablet 1000 MG ORAL Q8HR, #21 TAB 0 Refills Prov: Robinson Navarro 01/17/19 Omeprazole (OMEPRAZOLE) 20 Mg Tablet. 20 MG ORAL DAILY, #30 TAB Prov: Robinson Navarro 01/17/19 Patient Instructions: Food Choices for Gastroesophageal Reflux Disease, Adult, Lumbosacral Strain Additional Instructions: Take medication as directed follow-up with your primary care provider avoid eating spicy, acidic food lower your stress level. Alternate icing heating the affected area Robinson Navarro Jan 17, 2019 20:35
[2019-01-17] MEDS ORDERED: ACETAMINOPHEN500 M3 ORAL (20:37)
[2019-01-17] MEDS ORDERED: OMEPRAZOLE20 M3 ORAL (20:37)
[2019-01-17] MEDS ORDERED: VOLTAREN100 G1 TP (20:37)
[2019-01-17 20:41] VITALS: BP 138/84
--- NOTE | 2019-01-17 20:41 | NUR ---
ER DISCHARGE NOTE: Patient is cleared to be discharged per ERMD, pt is aox4, on room air, with stable vital signs. pt was given dc and prescription instructions, pt was able to verbalize understanding, pt id bandremoved without complications. pt is able to ambulate with steady gait. pt took all belongings.
== END 2019-01-17 20:41 | disposition home or self-care (01) ==
LOC: EMR 19:23
DX: K21.9 Gastro-esophageal reflux disease without esophagitis (principal); S39.012A Strain of muscle, fascia and tendon of lower back, initial encounter; X50.0XXA Overexertion from strenuous movement or load, initial encounter; Y92.9 Unspecified place or not applicable; Z91.013 Allergy to seafood; Z85.841 Personal history of malignant neoplasm of brain; I10 Essential (primary) hypertension
CPT/HCPCS: 36415; 71045; 80053; 81001; 84484; 85025; 93005; 99284